=== PATIENT | female | born 1980 | race Caucasian/White ===

== ENCOUNTER → 2018-11-19 | Outpatient (CLI) | payer OTHER ==
[2018-11-19 14:14] LABS: HEMATOCRIT 42.5 % (36.0-47.0); HEMOGLOBIN 14.3 g/dl (12.0-15.5); MEAN CORPUSCULAR HGB CONC 33.6 g/dl (32.0-36.5); MEAN CORPUSCULAR VOLUME 86.2 fl (80.0-96.0); PLATELET COUNT, AUTOMATED 358 10^3/uL (150-450); RED BLOOD COUNT 4.93 10^6/uL (4.00-5.40); WHITE BLOOD COUNT 10.5 10^3/uL (4.0-10.0)
[2018-11-19 14:44] LABS: FREE T4 0.93 NG/DL (0.76-1.46); THYROID STIMULATING HORMONE 2.55 uIU/ML (0.358-3.740)
[2018-11-19 14:45] LABS: PROLACTIN 6.8 NG/ML
[2018-11-19 14:46] LABS: ESTRADIOL 68.1 PG/ML; FOLLICLE STIMULATING HORMONE 5.4 mIU/mL; LUTEINIZING HORMONE 8.8 mIU/mL
[2018-11-21 00:07] LABS: DEHYDROEPIANDROSTERONE SULFATE 138.3 ug/dL (57.3-279.2); TESTOSTERONE FREE (DIRECT) 2.4 pg/mL (0.0-4.2)
== END ==
LOC: M LAB 13:31
PROVIDERS: ATTEND Advanced Practice Midwife
DX: N92.1 Excessive and frequent menstruation with irregular cycle (principal)

== ENCOUNTER → 2018-11-20 | Outpatient (CLI) | payer OTHER ==
--- NOTE | 2018-11-20 16:10 | REP ---
Clinical: Menorrhagia . Technique: Transabdominal pelvic ultrasound followed by transvaginal examination for better evaluation of the endometrium and adnexa with color Doppler evaluation of the ovaries. Findings: Bladder is unremarkable and measures 8.9 x 6.2 x 7.7 cm . Normal anteverted uterus measures 8.2 x 3.7 x 4.3 cm . The endometrial complex measures 6.2 mm thickness. No discrete uterine or endometrial abnormalities are appreciated. Bilateral ovaries are normal in appearance and vascularity without evidence for torsion. Right ovary measures 3.5 x 3.0 x 2.9 cm ; R I = 0.44. 2.2 cm hemorrhagic cyst in the right ovary noted. Left ovary measures 3.4 x 2.9 x 2.0 cm ; R I = 0.47 . No pelvic fluid or adnexal mass lesion . Impression: 1. Essentially normal pelvic ultrasound. 2. 2.2 cm hemorrhagic cyst in the right ovary. Electronically Signed by Maxime Hagen MD 11/20/2018 04:02 P
== END ==
LOC: M RAD 15:16
PROVIDERS: ATTEND Advanced Practice Midwife
DX: N83.291 Other ovarian cyst, right side (principal); N92.1 Excessive and frequent menstruation with irregular cycle

== ENCOUNTER → 2018-11-27 | Outpatient (REF) | payer OTHER ==
[2018-11-29 15:33] LABS: HPV HYBRID CAPTURE II Negative (Negative)
== END ==
LOC: M LAB REF 13:42
PROVIDERS: ATTEND Advanced Practice Midwife
DX: Z12.4 Encounter for screening for malignant neoplasm of cervix (principal); R87.612 Low grade squamous intraepithelial lesion on cytologic smear of cervix (LGSIL)

== ENCOUNTER → 2019-01-29 | Outpatient (CLI) | payer OTHER | LOC: M LAB 12:48 | PROVIDERS: ATTEND Obstetrics & Gynecology | DX: E28.2 Polycystic ovarian syndrome (principal) ==

== ENCOUNTER → 2023-06-28 | Outpatient (CLI) | payer OTHER ==
[2023-06-28 14:24] LABS: FOLATE 6.7 NG/ML (>5.4)
[2023-06-28 14:25] LABS: RHEUMATOID FACTOR QUANT < 3.5 IU/ML (<14); VITAMIN B12 LEVEL 351 PG/ML (211-911)
== END ==
LOC: M PLALAB 11:38
PROVIDERS: ATTEND Psychiatry & Neurology Neurology
DX: G62.9 Polyneuropathy, unspecified (principal); M35.00 Sjogren syndrome, unspecified